=== PATIENT | female | born 1980 | race Caucasian/White ===

== ENCOUNTER 2017-04-23 05:57 | Day surgery (SDC) | payer OTHER ==
[2017-04-15 10:47] LABS: BASOPHILS 0.6 %; BASOPHILS ABSOLUTE 0.04 10/3/uL (0.0-0.16); EOSINOPHILS 1.6 %; HEMATOCRIT 43.7 % (36.0-48.0); IMMATURE GRANULOCYTES 0.3 %; IMMATURE GRANULOCYTES ABSOLUTE 0.02 10/3/uL (0.0-0.11); LYMPHOCYTES ABSOLUTE 2.57 10/3/uL (0.67-4.30); MEAN CORPUS HGB CONC 34.3 g/dL (32.0-36.0); MEAN CORPUSCULAR HEMOGLOB 29.5 pg (26.0-34.0); MONOCYTES 7.7 %; MONOCYTES ABSOLUTE 0.48 10/3/uL (0.21-1.20); NEUTROPHILS 48.8 %; NEUTROPHILS ABSOLUTE 3.06 10/3/uL (2.02-8.40); PLATELET COUNT 272 10/3/uL (150-400); RBC DISTRIBUTION WIDTH 12.1 % (12.0-16.0); RED CELL COUNT 5.08 10/6/uL (4.0-5.6); WHITE BLOOD CELLS 6.3 10/3/uL (4.5-10.5)
[2017-04-15 10:52] LABS: MANUAL DIFF NO %
[2017-04-15 11:06] LABS: BUN (BLOOD UREA NITROGEN) 10 MG/DL (6-23); CALCIUM, SERUM 8.8 MG/DL (8.5-10.4); CHLORIDE, SERUM 109 MMOL/L (96-112); CO2 (CARBON DIOXIDE) 24 MMOL/L (24-34); CREATININE 0.82 MG/DL (0.55-1.02); GFR AFRICAN AMERICAN 108 ML/MIN (>=60); GFR NON AFRICAN AMERICAN 93 ML/MIN (>=60); GLUCOSE, SERUM 91 MG/DL (60-99); POTASSIUM, SERUM 4.1 MMOL/L (3.5-5.3); SODIUM, SERUM 142 MMOL/L (135-148)
[~2017-04-23] VITALS: Ht 162.6 cm; Wt 76.7 kg
--- NOTE | ~2017-04-23 | OP ---
Record Of Operation [facility] [address] [place]. [address] NAME: ALEX AUGUSTINE : 84 STATUS : REG [facility] PAT#: [id number] AGE: 36 ADM/REG DATE : 04/23/17 MR#: [id number] REPORT SERV DATE: 04/23/17 DICTATED BY: RONY JEFFERS DATE: 04/23/17 REPORT STATUS : Draft TRANSCRIBED BY: MARISSA DATE: 04/23/17 DATE OF PROCEDURE: 04/23/2017 SERVICE: Otolaryngology. PREOPERATIVE DIAGNOSES: 1. Chronic bilateral frontal sinusitis. 2. Chronic bilateral sphenoid sinusitis. POSTOPERATIVE DIAGNOSES: 1. Chronic bilateral frontal sinusitis. 2. Chronic bilateral sphenoid sinusitis. PROCEDURES: 1. Bilateral endoscopic frontal sinusotomy. 2. Bilateral endoscopic sphenoid sinusotomy. ANESTHESIA: General endotracheal anesthesia. COMPLICATIONS: None. SPECIMENS: None. FINDINGS: I was able to get 6 mm dilations for all four sinuses as mentioned above. STATEMENT OF MEDICAL NECESSITY: This is a 36-year-old female with recurrent sinus infections and headaches in the central region. The patient underwent a full neurology workup which was negative. She had findings on her scan of inflammation in the frontal sinus outflow tracts and sphenoid sinuses specifically, and that is why I recommended targeting these areas. STATEMENT OF OPERATION: The patient was brought to the operating room in supine position, transferred over to the operating room table, after pressure points were padded and general endotracheal anesthesia was established. The nose was packed with 4% cocaine-soaked pledgets. She was then prepped and draped out for sinus procedure. She was placed in the reverse Trendelenburg position. The pledgets were removed and the 0 degree endoscope was introduced into the left side of the nose, and injections were performed along the septum at the root of the middle turbinate, face of the middle turbinate, and lateral nasal wall. Afrin-soaked pledget was then placed between the middle turbinate and the lateral nasal wall in the frontal sinus outflow tract region. This process was repeated for the right hand side again with the same injections, then removed the left-hand pledget using a 45-degree scope and the Paperfold[employer] Aera Relieva Spin balloon system, I cannulated the frontal sinus. This was confirmed with focal point transillumination, I performed three separate inflations to 12 atmospheres for 3 seconds each along the frontal sinus outflow tract. I removed the balloon and confirmed a wide 6 mm opening with the 45-degree scope. I then placed an Afrin- soaked pledget. Along the floor of the nose, I identified the superior turbinate, gently Record Of Operation [facility] [address] [place]. [address] NAME: ALEX AUGUSTINE : 84 STATUS : REG [facility] PAT#: [id number] AGE: 36 ADM/REG DATE : 04/23/17 MR#: [id number] REPORT SERV DATE: 04/23/17 DICTATED BY: RONY JEFFERS DATE: 04/23/17 REPORT STATUS : Draft TRANSCRIBED BY: MARISSA DATE: 04/23/17 lateralized it with a [place] and injected with a 25-gauge spinal needle along the face of the sphenoid. Then, I placed an Afrin-soaked pledget there, and turned my attention to the right side. The pledget was removed from the outflow tract on the right-hand side. The frontal sinus catheter was introduced into the frontal sinus and appropriate cannulation was confirmed with focal transillumination. Three separate inflations to 12 atmospheres for 3 seconds each were performed. The 45-degree scope was then used to confirm a wide 6 mm frontal sinus opening. I placed a pledget here, then switched over to the 0 degree scope, and advanced it down the floor of the left side of the nose. I identified the superior turbinate, injected the face of the sphenoid. Then, I introduced a lighted wire under direct visualization into the sphenoid sinus. I did a single dilation to 12 atmospheres and deflated it, confirmed with direct visualization a large 6 mm opening. This process was repeated for the left-hand side. The left-hand sphenoid sinus was also cannulated under direct visualization and dilated to 6 mm. This concluded the procedure. All pledgets were removed and the patient was turned back over to Anesthesia, where she awoken, was extubated, and transferred to the PACU in stable condition. ALBERTA/MARISSA Rony Jeffers MD / [id number] CC: MD Iris Cuevas M.D.
[~2017-04-23 05:57] MED LIST: BIRTH CONTROL PILL; FERROUS SULF325 M1 PO; PRIN10 PO
== END 2017-04-23 13:30 | disposition home or self-care (01) ==
LOC: SDC 05:57 → MSC 07:15 → SDC 13:30
PROVIDERS: Otolaryngology
PROC: 099T4ZZ Drainage of Left Frontal Sinus, Percutaneous Endoscopic Approach (ICD-10-PCS; 2017-04-23)
PROC: 099X4ZZ Drainage of Left Sphenoid Sinus, Percutaneous Endoscopic Approach (ICD-10-PCS; 2017-04-23)
PROC: 099W4ZZ Drainage of Right Sphenoid Sinus, Percutaneous Endoscopic Approach (ICD-10-PCS; 2017-04-23)
PROC: 099S4ZZ Drainage of Right Frontal Sinus, Percutaneous Endoscopic Approach (ICD-10-PCS; principal; 2017-04-23 07:15)
DX: J32.1 Chronic frontal sinusitis (principal); J32.3 Chronic sphenoidal sinusitis; I10 Essential (primary) hypertension; Z98.890 Other specified postprocedural states
CPT/HCPCS: 80048; 84703; 85025; 93005; A9270-GY; C1725; C1726; J0690; J2250; J2405; J3010